=== PATIENT | male | born 1980 | race Caucasian/White ===

== ENCOUNTER → 2016-05-17 | Outpatient (CLI) | payer OTHER ==
[~2016-05-17] MED LIST: APAP500 PO; ASCORBIC ACID500 M3 PO; CIPRO250 M1 PO; COLACE100 MG PO; FLAGYL500 MG PO; IBUPROFEN 200200 M1 PO; IBUPROFEN200 M2 PO; MULTI VITAMIN1 EACH PO; PHARBETOL500 M1 PO; POVIDINE 10% OI28 G1 TP; REMERON15 MG PO; SANTYL OINTMENT30 G1; ZINC SULFATE 2220 MG PO
== END ==
LOC: HYPER 07:09
DX: L89.313 Pressure ulcer of right buttock, stage 3 (principal); L89.213 Pressure ulcer of right hip, stage 3; L89.323 Pressure ulcer of left buttock, stage 3; L89.892 Pressure ulcer of other site, stage 2; G82.21 Paraplegia, complete; F17.210 Nicotine dependence, cigarettes, uncomplicated

== ENCOUNTER → 2016-07-12 | Outpatient (CLI) | payer OTHER | LOC: HYPER 07:14 | DX: L89.313 Pressure ulcer of right buttock, stage 3 (principal); L89.213 Pressure ulcer of right hip, stage 3; L89.223 Pressure ulcer of left hip, stage 3; L89.892 Pressure ulcer of other site, stage 2; L89.623 Pressure ulcer of left heel, stage 3; G82.21 Paraplegia, complete; F17.210 Nicotine dependence, cigarettes, uncomplicated ==

== ENCOUNTER → 2016-08-23 | Outpatient (CLI) | payer OTHER | LOC: HYPER 07:13 | DX: L89.313 Pressure ulcer of right buttock, stage 3 (principal); L89.523 Pressure ulcer of left ankle, stage 3; L89.213 Pressure ulcer of right hip, stage 3; L89.223 Pressure ulcer of left hip, stage 3; L89.623 Pressure ulcer of left heel, stage 3; L89.892 Pressure ulcer of other site, stage 2; G82.21 Paraplegia, complete; F17.210 Nicotine dependence, cigarettes, uncomplicated ==

== ENCOUNTER → 2016-09-20 | Outpatient (CLI) | payer OTHER | LOC: HYPER 07:01 | DX: L89.213 Pressure ulcer of right hip, stage 3 (principal); L89.223 Pressure ulcer of left hip, stage 3; L89.623 Pressure ulcer of left heel, stage 3; L89.892 Pressure ulcer of other site, stage 2; L89.313 Pressure ulcer of right buttock, stage 3; G82.21 Paraplegia, complete; F17.210 Nicotine dependence, cigarettes, uncomplicated ==

== ENCOUNTER → 2016-10-18 | Outpatient (CLI) | payer OTHER | LOC: HYPER 06:54 | DX: L89.213 Pressure ulcer of right hip, stage 3 (principal); L89.223 Pressure ulcer of left hip, stage 3; L89.623 Pressure ulcer of left heel, stage 3; L89.523 Pressure ulcer of left ankle, stage 3; L89.313 Pressure ulcer of right buttock, stage 3; G82.21 Paraplegia, complete; F17.210 Nicotine dependence, cigarettes, uncomplicated ==

== ENCOUNTER → 2016-12-04 | Outpatient (CLI) | payer OTHER | LOC: HYPER 11-13 06:41 | DX: L89.213 Pressure ulcer of right hip, stage 3 (principal); L89.223 Pressure ulcer of left hip, stage 3; L89.313 Pressure ulcer of right buttock, stage 3; L89.623 Pressure ulcer of left heel, stage 3; L89.523 Pressure ulcer of left ankle, stage 3; G82.21 Paraplegia, complete; F17.210 Nicotine dependence, cigarettes, uncomplicated ==

== ENCOUNTER → 2017-02-28 | Outpatient (CLI) | payer OTHER ==
[~2017-02-28] MED LIST changes: +CEFDINIR300 MG PO; +DAKIN'S473 ML IRRIG; +HYDROCODON-ACE1 EAC5 PO; +IBUPROFEN 400400 M2 PO; +MEROPENEM500 MG IV; +SSD CREAM 1% 5050 GM
== END ==
LOC: HYPER 06:55
DX: L89.313 Pressure ulcer of right buttock, stage 3 (principal); L89.213 Pressure ulcer of right hip, stage 3; L89.223 Pressure ulcer of left hip, stage 3; L89.623 Pressure ulcer of left heel, stage 3; L89.613 Pressure ulcer of right heel, stage 3; G82.21 Paraplegia, complete; F17.210 Nicotine dependence, cigarettes, uncomplicated

== ENCOUNTER 2017-03-02 16:15 | Inpatient (IN) | payer OTHER ==
[~2017-03-02] VITALS: Ht 185.4 cm; Wt 68.0 kg
--- NOTE | ~2017-03-02 | HC ---
[facility] [place] [address] CONSULTATION Name: HARJINDERJORGEJOSE Link Room #: 444-P ADM IN M.R.#: [id number] Admission: 03/02/17 Attend Phys: Jerry Cardona DO Discharge: Date of : 80 Report #: [id number] THIS REPORT FOR: //name// CC: Jerry Sy TYPE OF REPORT: Infectious diseases consultation. REASON FOR CONSULTATION: I was asked to evaluate concerning left hip osteomyelitis. HISTORY OF PRESENT ILLNESS: The patient is a 36-year-old L1 paraplegic since 2008. He has developed decubiti to left him, ischium and sacrum in the past, now dealing with a chronic wound to his right sacrum and is left greater trochanter. He has had multiple debridements. He has been undergoing daily wound care. he has been on and off intravenous antibiotics. He has had a previous myocutaneous flap to the ischium on the right. Most recently, he noticed dislocation in his left hip. He was being evaluated by Dr. Crump who recommended hospitalization for further surgical intervention. No fever, chills or sweats. REVIEW OF SYSTEMS: Unremarkable with no cardiopulmonary, GI or complaints other than the patient does have neurogenic bowel and bladder. He does have indwelling Leung catheter. ALLERGIES: None. MEDICATIONS: As noted on his MAR. PAST MEDICAL HISTORY: Previous debridements in his paraplegia. FAMILY HISTORY: Noncontributory. SOCIAL HISTORY: Smoker of cigarettes. No significant alcohol. He has some social issues where he states have to be at home within a week to take care of his kids. PHYSICAL EXAMINATION: VITAL SIGNS: He is afebrile, hemodynamically stable. GENERAL: He was alert and cooperative, no acute distress. HEENT: Unremarkable. CHEST: Clear. HEART: Regular. ABDOMEN: Soft. GENITALIA: External genitalia unremarkable. [facility] [address] [place] [address] CONSULTATION Name: REINA GRANDE Room #: 444-P [facility] IN [facility].#: [id number] Admission: 03/02/17 Attend Phys: Jerry Cardona DO Discharge: Date of : 80 Report #: [id number] MUSCULOSKELETAL: Right sacral wound was clean but deep, stage 4. The left hip wound was with granulation tissue present but fair amount of purulent drainage evident. The hip appeared to be disarticulated. No surrounding cellulitis. IMPRESSION AND PLAN: A 36-year-old paraplegic with suspected osteomyelitis of his left hip with chronic wound, likely has osteomyelitis involving the sacrum on the right and the patient will require further surgical debridement, possible hip disarticulation. We will obtain cultures tonight and blood work along with imaging studies. Surgery will be asked to be involved and we will likely start empiric antibiotics following cultures. <ELECTRONICALLY SIGNED> By: Robin Whitley MD 03/05/17 1302 [id number] [id number] Robin Whitley MD /lm
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
--- NOTE | ~2017-03-02 | O ---
[facility] [place] [address] OPERATIVE REPORT Name: REINA GRANDE Room #: 444-P ADM IN M.R.#: [id number] Admission: 03/02/17 Attend Phys: Jerry Cardona DO Discharge: Date of : 80 Report #: [id number] THIS REPORT FOR: //name// CC: Jerry Sy DATE OF SERVICE: 03/05/2017 PREOPERATIVE DIAGNOSES: 1. L1 paraplegia. 2. Stage IV decubitus wounds to the bilateral hips and right ischium. 3. Neurogenic bowel and bladder with an indwelling Leung catheter. 4. Severe protein calorie malnutrition with an albumin of 1.5. 5. 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 POSTOPERATIVE DIAGNOSES: 1. L1 paraplegia. 2. Stage IV decubitus wounds to the bilateral hips and right ischium. 3. Neurogenic bowel and bladder with an indwelling Leung catheter. 4. Severe protein calorie malnutrition with an albumin of 1.5. 5. 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 PROCEDURES: 1. Excisional debridement of skin, subcutaneous tissue, muscle and bone of his left hip wound measuring 10.75 x 9.5 cm in dimension (102.1 square cm). Preoperative wound measurements were similar as the overall dimension of the wound did not change substantially. 2. Excisional debridement of skin, subcutaneous tissue, muscle and bone of a right ischial decubitus wound ultimately measuring 7 x 5.5 cm in dimension (38.5 square cm). Preoperative wound measurements were similar as the overall dimensions of the wound did not change substantially. 3. Excisional debridement of skin, subcutaneous tissue, muscle and bone from a right hip decubitus wound ultimately measuring 8.5 x 7.5 cm in dimension (63.75 square cm). Preoperative wound measurements were similar as the overall dimensions of the wound did not change substantially. 4. Total surface area of all debrided wounds to bone equates to 204.35 square cm. SURGEON: Miguel White MD PARTY COORDINATOR: Alexander Gomes MS3. ANESTHESIA: General endotracheal anesthesia. [address] [address] OPERATIVE REPORT Name: REINA GRANDE Room #: 444-P [facility] IN M.R.#: [id number] Admission: 03/02/17 Attend Phys: Jerry Cardona DO Discharge: Date of : 80 Report #: [id number] ESTIMATED BLOOD LOSS: Minimal (less than 10 mL). COMPLICATIONS: None appreciated. SPECIMENS: 1. All excised tissue to pathology. 2. Culture swabs from left hip to microbiology. INDICATIONS: The patient is a 36-year-old male who has had longstanding paraplegia and has developed decubitus wounds that are stage 4 to all dependent areas overlying his hips and ischial regions. The patient has been admitted secondary to gross purulent drainage from his wounds and was found on CT scan of the pelvis to have left hip disarticulation with overt disintegration of the femoral head and pathologic fractures with gas in the joints. As the patient has necrotic tissue throughout the bed of each wound with purulent drainage, indication was for operative exploration today. DESCRIPTION OF PROCEDURE: After explaining the risks, benefits, and alternatives of the procedure with the patient in detail and obtaining consent, the patient was brought to the operating room and placed supine on his hospital bed. After conducting a thorough timeout procedure verifying correct patient and procedure, the patient was given general endotracheal anesthesia. Once adequate anesthesia was obtained, his SCDs were hooked up to pneumatic compression device. He was already on an inpatient regimen of IV antibiotic therapy, which is all in line with the SCIP protocol. The patient was now positioned on the operating room table in the prone position with all pressure points appropriately padded. His wounds were prepped and draped in the standard surgical sterile fashion. Upon evaluating the left hip wound, we had an immediate expression of nearly 150 mL of extremely foul smelling purulent drainage. Culture swabs were taken and sent to microbiology for analysis. Suction irrigation was used to evacuate the entirety of this and this was irrigated copiously with normal saline. I now used electrocautery to debride back all nonviable skin, subcutaneous tissue and muscle from the depths of the wound and around the periphery. Rongeurs were used to take bone and the patient's left hip was devoid of any vascularized bone. Therefore, a stop debridement at this juncture secondary to the likely need for left hip disarticulation. Hemostasis was assured with pressure and then the wound was packed tightly with sterile saline soaked Kerlix gauze. We then turned our attention to the right ischium where in similar fashion, I proceeded to debride all nonviable tissue down to bone and then utilized the Misonix ultrasonic debridement tool to remove the biofilm and all remaining nonviable tissue. In similar fashion, the right hip wound was debrided as well to dimensions as delineated above again using the Misonix ultrasonic debridement tool down to bone. Hemostasis was assured throughout. There was no further evidence of grossly necrotic tissue. All wounds were packed tightly with sterile saline [address] [address] OPERATIVE REPORT Name: REINA GRANDE Room #: 444-P [facility] IN .R.#: [id number] Admission: 03/02/17 Attend Phys: Jerry Cardona DO Discharge: Date of : 80 Report #: [id number] soaked Kerlix gauze, dressed with 4 x 4s, ABDs and Medipore tape. At the end of the procedure, all instrument, needle and sponge counts were correct. The patient tolerated the procedure without incident, was awakened in the operating room and transitioned to the recovery room in stable condition with no apparent complications. <ELECTRONICALLY SIGNED> By: Miguel White MD, FACS 03/05/17 1309 1232 1249 Miguel White MD, FACS /nt
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
--- NOTE | ~2017-03-02 | S ---
[facility] [place] [address] SURGICAL PATH RPT PROCEDURE Name: HARJINDERMERRICK Isabel Room #: 444-P ADM IN M.R.#: [id number] Admission: 03/02/17 Date of : 80 Discharge: Report #: [id number] Path Case #: [id number] PATHOLOGY REPORT COLLECTION DATE: 03/05/2017 RECEIVED DATE: 03/05/2017 SUBMITTING PHYS: Dr. Miguel White OTHER PHYS: Dr. Jerry La SPECIMEN(S) RECEIVED: A.Right hip tissue * * * * * * * * * * * * FINAL DIAGNOSIS: Right hip tissue, debridement: - Marked acute inflammation along with gangrenous and fibrinoid necrosis, consistent with decubitus ulcer. - Negative for malignancy. (IUV:pit; 03/06/2017) PATHOLOGIST: Swetha Montes M.D. REPORT ELECTRONICALLY SIGNED BY: Swetha Montes M.D. DATE/TIME: 03/06/2017 17:22 * * * * * * * * * * * * GROSS PATHOLOGY: The specimen is received in formalin, labeled "Merrick Grande and right hip tissue is a longitudinal irregular fragment of leroy-white fibrous tissue 5.0 cm in length and up to 1.7 cm in width. One surface has a 2.5 x 2.0 cm leroy-white skin. Sectioning shows a hemorrhagic cut surface underlying the skin. Commercial Reporter sections in A1. (SWS; 03/05/2017) CLINICAL HISTORY: Decubitus ulcer to bilateral iliacs and right ischium INITIAL CPT CODE(S): A; 79633 Professional services performed by [facility] at [facility] [address], [place] [address] [facility] [address] [place] [address] SURGICAL PATH RPT PROCEDURE Name: MERRICK GRANDE Room #: 444-P ADM IN M.R.#: [id number] Admission: 03/02/17 Date of : 80 Discharge: Report #: [id number] Path Case #: [id number] Technical services performed by [facility] at [address] [place] [address], [place] [address]. [facility] [address] [place] [address] PHONE: [phone] DIRECTOR: Zeus Mazariegos M.D. * * * END OF REPORT * * *
[~2017-03-02 16:15] MED LIST changes: -CEFDINIR300 MG PO; -DAKIN'S473 ML IRRIG; -HYDROCODON-ACE1 EAC5 PO; -IBUPROFEN 400400 M2 PO; -MEROPENEM500 MG IV; -SSD CREAM 1% 5050 GM
[2017-03-02] MEDS ORDERED: HYDROCODON-ACE1 EAC5 PO (17:41)
[2017-03-02 17:58] VITALS: BP 113/68
[2017-03-02 20:07] VITALS: BP 112/67
[2017-03-02 20:30] LABS: HEMATOCRIT 25.9 % (42.0-52.0); MCH 21.7 pg (26.0-34.0); MCHC 30.8 g/dL (28.0-37.0); RBC 3.68 mil/uL (4.50-6.00)
[2017-03-02 20:31] LABS: URINE BILIRUBIN NEGATIVE (Negative); URINE BLOOD NEGATIVE (Negative); URINE CLARITY TURBID; URINE COLOR YELLOW; URINE GLUCOSE-RANDOM* NEGATIVE (Negative); URINE KETONES NEGATIVE (Negative); URINE PROTEIN (DIPSTICK) NEGATIVE (Negative); URINE SPECIFIC GRAVITY >= 1.030 (1.005-1.035); URINE UROBILINOGEN 0.2 E.U./dl (0.2-1.0)
[2017-03-02 20:31] LABS: ABSOLUTE NEUTROPHILS 9.6 thou/uL (1.4-8.2); BASOPHILS 0.7 % (0.0-2.0); LYMPHOCYTES 17.1 % (24.0-44.0); MCV 70.4 fL (80.0-100.0); MONOCYTES 8.6 % (1.0-8.0); POLYS 71.6 % (36.0-66.0); RDW 18.8 % (10.5-14.5); WBC 13.4 thou/uL (4.0-11.0)
[2017-03-02 20:41] LABS: PLATELET COUNT 997 thou/uL (150-400)
[2017-03-02 20:42] LABS: URINE LEUKOCYTES-REFLEX TRACE (Negative); URINE NITRITE-REFLEX POSITIVE (Negative)
[2017-03-02 20:48] LABS: ALBUMIN 1.5 g/dL (3.4-5.0); ANION GAP 6 mmol/L (7-16); BUN 7 mg/dL (7-18); CHLORIDE 103 mmol/L (98-107); CO2 29 mmol/L (21-32); CREATININE 0.7 mg/dL (0.7-1.3); GLUCOSE 125 mg/dL (74-106); POTASSIUM 3.6 mmol/L (3.5-5.1); SGOT 14 U/L (15-37); SGPT 14 U/L (30-65); SODIUM 138 mmol/L (136-145); TOTAL BILIRUBIN < 0.1 mg/dL (<0.1-1.0); TOTAL PROTEIN 6.7 g/dL (6.4-8.2)
[2017-03-02 20:52] LABS: URIC ACID CRYSTALS >10 Many /LPF (None Seen); YEAST-REFLEX Present (None Seen)
[2017-03-02 20:53] LABS: BACTERIA-REFLEX 1-9 Few /HPF (None Seen); CASTS None Seen /LPF (None Seen); SQUAMOUS None Seen /LPF (0-3); URINE RBC None Seen /HPF (0-2); URINE WBC-REFLEX None Seen /HPF (0-5)
[2017-03-02 21:39] LABS: ANISOCYTOSIS 3+; HYPOCHROMASIA 1+; MICROCYTES 1+; POIKILOCYTOSIS SLIGHT; POLYCHROMASIA SLIGHT
[2017-03-03 03:28] VITALS: BP 98/65
[2017-03-03 08:00] VITALS: BP 101/66
[2017-03-03 16:00] VITALS: BP 100/65
[2017-03-03 19:55] VITALS: BP 96/62
[2017-03-04 04:10] VITALS: BP 100/69
[2017-03-04 08:20] VITALS: BP 91/59
[2017-03-04 17:05] VITALS: BP 84/49
[2017-03-04 21:25] VITALS: BP 85/51
[2017-03-05] VITALS (8 sets, daily range): BP systolic 83–101; BP diastolic 49–59
[2017-03-05 06:00] LABS: ABSOLUTE NEUTROPHILS 9.3 thou/uL (1.4-8.2); BASOPHILS 0.5 % (0.0-2.0); EOSINOPHILS 3.3 % (0.0-3.0); HEMATOCRIT 27.1 % (42.0-52.0); HEMOGLOBIN 8.3 gm/dL (14.0-18.0); LYMPHOCYTES 23.6 % (24.0-44.0); MCH 21.5 pg (26.0-34.0); MCHC 30.4 g/dL (28.0-37.0); MCV 70.7 fL (80.0-100.0); MONOCYTES 7.1 % (1.0-8.0); POLYS 65.5 % (36.0-66.0); RBC 3.84 mil/uL (4.50-6.00); RDW 18.5 % (10.5-14.5); WBC 14.3 thou/uL (4.0-11.0)
[2017-03-05 06:07] LABS: PLATELET COUNT 893 thou/uL (150-400)
[2017-03-05 06:20] LABS: CALCIUM 8.1 mg/dL (8.5-10.1); CREATININE 0.6 mg/dL (0.7-1.3); POTASSIUM 4.1 mmol/L (3.5-5.1)
[2017-03-05 08:03] LABS: ANISOCYTOSIS 2+; HYPOCHROMASIA 2+; MICROCYTES 1+
[2017-03-06 03:47] VITALS: BP 96/56
[2017-03-06 08:00] VITALS: BP 89/51
[2017-03-06 09:55] VITALS: BP 92/37
[2017-03-06 16:02] VITALS: BP 83/52
[2017-03-06 21:07] VITALS: BP 100/53
[2017-03-07 04:49] VITALS: BP 100/56
[2017-03-07 16:00] VITALS: BP 89/51
[2017-03-07 19:59] VITALS: BP 94/45
[2017-03-08 12:02] VITALS: BP 92/59
[2017-03-08 15:38] VITALS: BP 89/56
[2017-03-08 19:22] VITALS: BP 95/55
[2017-03-09 03:47] VITALS: BP 116/45
[2017-03-09 08:00] VITALS: BP 88/52
[2017-03-09] MEDS ORDERED: HYDROCODON-ACE1 EAC5 PO (09:54)
[2017-03-09 10:27] VITALS: BP 88/52
[2017-03-09] MEDS ORDERED: CEFDINIR300 MG PO (14:42)
[2017-03-09] MEDS ORDERED: FLAGYL500 MG PO (14:42)
[2017-03-09 16:00] VITALS: BP 88/52
[2017-03-09 16:05] VITALS: BP 88/52
[2017-05-10] MEDS ORDERED: SSD CREAM 1% 5050 GM (08:51)
[2017-05-10] MEDS ORDERED: IBUPROFEN 400400 M2 PO (09:15)
== END 2017-03-09 20:36 | disposition home health service (06) | DRG 853 ==
LOC: 4S 16:15
PROVIDERS: Family Medicine; Internal Medicine; Specialist
PROC: 0QB30ZZ Excision of Left Pelvic Bone, Open Approach (ICD-10-PCS; principal; 2017-03-05)
DX: A41.9 Sepsis, unspecified organism (principal); L89.224 Pressure ulcer of left hip, stage 4; E43 Unspecified severe protein-calorie malnutrition; L89.624 Pressure ulcer of left heel, stage 4; L89.614 Pressure ulcer of right heel, stage 4; L89.154 Pressure ulcer of sacral region, stage 4; M86.8X8 Other osteomyelitis, other site; G82.20 Paraplegia, unspecified; Z68.1 Body mass index [BMI] 19.9 or less, adult; R00.0 Tachycardia, unspecified; I95.9 Hypotension, unspecified; F17.210 Nicotine dependence, cigarettes, uncomplicated; Z79.899 Other long term (current) drug therapy
CPT/HCPCS: 10102; 50010; 50101; 50386; 50403; 53353; 53354; 62110; 62900; 70005

== ENCOUNTER → 2017-04-18 | Outpatient (CLI) | payer OTHER ==
[~2017-04-18] MED LIST changes: +CEFDINIR300 MG PO; +DAKIN'S473 ML IRRIG; +HYDROCODON-ACE1 EAC5 PO; +IBUPROFEN 400400 M2 PO; +MEROPENEM500 MG IV; +SSD CREAM 1% 5050 GM
== END ==
LOC: HYPER 06:53
DX: L89.224 Pressure ulcer of left hip, stage 4 (principal); L89.213 Pressure ulcer of right hip, stage 3; L89.313 Pressure ulcer of right buttock, stage 3; L89.613 Pressure ulcer of right heel, stage 3; L89.523 Pressure ulcer of left ankle, stage 3; L89.150 Pressure ulcer of sacral region, unstageable; G82.21 Paraplegia, complete; F17.210 Nicotine dependence, cigarettes, uncomplicated

== ENCOUNTER 2017-05-16 09:24 | Inpatient (IN) | payer OTHER ==
[~2017-05-16] VITALS: Ht 185.4 cm; Wt 60.2 kg
--- NOTE | ~2017-05-16 | O ---
[facility] [place] [address] OPERATIVE REPORT Name: HARJINDERREINA Fariba Room #: 238-P ADM IN M.R.#: [id number] Admission: 05/16/17 Attend Phys: Jerry Cardona DO Discharge: Date of : 80 Report #: [id number] THIS REPORT FOR: //name// CC: FAM unknown Jerry Cardona DATE OF SERVICE: 05/16/2017 PREOPERATIVE DIAGNOSIS: Bilateral hip joint sepsis with chronic ulceration. POSTOPERATIVE DIAGNOSIS: Bilateral hip joint sepsis with chronic ulceration. PROCEDURE: Bilateral hip Girdlestone procedure with placement of wound VACs on bilateral hips. SURGEON: Alexander Olmos MD EXECUTIVE SERVICES ADMINISTRATOR: Sara Montgomery PA-C. INDICATIONS FOR EXECUTIVE SERVICES ADMINISTRATOR: Throughout the case, extensive retraction of the hip and manipulation of the hip was required, this was afforded to me by my assistant store manager operations. ANESTHESIA: General endotracheal. ESTIMATED BLOOD LOSS: 250 mL COMPLICATIONS: None. SPECIMEN: Bilateral proximal femurs were sent for pathology. CONDITION UPON LEAVING THE OPERATING ROOM: Stable. INDICATION FOR PROCEDURE: The patient is a 36-year-old gentleman who is an L1 paraplegic. He has had chronic ulcers with drainage over his bilateral hips, and a CT scan shown to have a septic hip joint as well as osteomyelitis of bilateral femoral heads. His left hip was actually dislocated and the right hip was partially dislocated. He was having significant purulent drainage from the right hip. After discussion with him as well as recommendations from Infectious Disease and Wound Care, we decided to proceed with Girdlestone procedure with probable placement of wound VAC. DESCRIPTION OF PROCEDURE: Risks, benefits, alternatives, complications were discussed in detail with the patient including, but not limited to risk of anesthesia, risk of damage to nerves, arteries, blood vessels, risk for continued infection, bleeding and need for leg amputation down the road. [facility] [address] [place] [address] OPERATIVE REPORT Name: REINA GRANDE Room #: 238-P [facility] IN [facility].#: [id number] Admission: 05/16/17 Attend Phys: Jerry Cardona DO Discharge: Date of : 80 Report #: [id number] Informed consent was obtained from the patient. Bilateral hips were marked in the preoperative holding area. He was already on IV antibiotics prior to surgery. He was brought to the operating room and general endotracheal anesthesia was induced without complication. This dictation applies to both the left and the right hip. Hip was prepped and draped in normal sterile fashion. Timeout was performed properly identifying the patient and procedure as well as the instrumentation, and all in the operating room were in agreement. The ulcer was explored and there was obvious communication of the ulcer down into the hip joint itself. The proximal femur was then easily dissected out with Bovie cautery. A saw was used to transect the proximal femur and this was removed and sent to pathology. The right hip did demonstrate a large amount of purulence as well as osteomyelitis of the femoral head and the acetabulum, and the acetabulum was curetted out down to good bleeding cancellous bone. Both hips were thoroughly irrigated with normal saline using a pulse lavage and wound VACs were placed on bilateral hips for wound care. He was then awoken from anesthesia, taken to the recovery room under the care of anesthesia postoperatively. Hip abduction pillow was placed to control leg motion. <ELECTRONICALLY SIGNED> By: Alexander Olmos MD 05/19/17 0931 [id number] [id number] Alexander Olmos MD /nt
--- NOTE | ~2017-05-16 | HC ---
[facility] [place] [address] CONSULTATION Name: REINA GRANDE Room #: 238-P ADM IN M.R.#: [id number] Admission: 05/16/17 Attend Phys: Jerry Cardona DO Discharge: Date of : 80 Report #: [id number] THIS REPORT FOR: //name// CC: FAM unknown Jerry Cardona REASON FOR CONSULTATION: I was asked to evaluate concerning pelvic osteomyelitis. HISTORY OF PRESENT ILLNESS: The patient was a 36-year-old L1 paraplegic with chronic nonhealing wounds. He was hospitalized in February with evidence of osteomyelitis. It was recommended that he undergo extensive surgical debridement. Disarticulation was recommended. He refused and stated due to social issues, he needed to return home. Cultures have revealed mixed rigo and he was on ceftriaxone, metronidazole. Then, dismissed on oral antibiotic therapy. He returns now for further surgical intervention. He notes that over the last week, he has had fever over 102 degrees. Has had chills. No cough or headache. No nausea, vomiting or diarrhea. He has indwelling Leung catheter that was changed several weeks ago. Continues to have a large amount of drainage from his pelvic wounds. He has been on no recent antibiotics. Unclear when he stopped his oral antibiotic therapy that I dismissed him home on. REVIEW OF SYSTEMS: Negative other than what is described above. ALLERGIES: None. MEDICATIONS: As noted on his MAR, having been off his antibiotics. PAST MEDICAL HISTORY: Paraplegia, previous debridements, myocutaneous flap closure for his chronic wounds. Right femur fracture. Coccygectomy. Neurogenic bowel and bladder. Gastroesophageal reflux. FAMILY HISTORY: Noncontributory. SOCIAL HISTORY: Lives at home with his and children. PHYSICAL EXAMINATION: VITAL SIGNS: Afebrile and hemodynamically stable. Temperature is 99.6, pulse was 114, blood pressure 94/58. GENERAL: He is a bit despondent. He had odorous drainage from his hip wounds. HEENT: Unremarkable. Dentition in fair repair. NECK: Supple. LUNGS: Clear. HEART: Regular without murmur. He was tachycardic. ABDOMEN: Soft. Indwelling Leung catheter is unremarkable. Wounds were large with bone exposed to both hip regions. Odorous purulent drainage identified from his right hip. [facility] [address] [place] [address] CONSULTATION Name: REINA GRANDE Room #: 238-P [facility].#: [id number] Admission: 05/16/17 Attend Phys: Jerry Cardona DO Discharge: Date of : 80 Report #: [id number] LABORATORY STUDIES: Hemoglobin 7.2, white count was 26.2 with 40% bands, platelet count was 1 million 62,000. Lactate 3.6, sodium 129, potassium 3.4, bicarbonate 27, creatinine 0.7. Liver function test normal. Albumin of 1.3. IMPRESSION: Polymicrobial infection of his pelvic wounds. Now with significant leukocytosis with left shift, anemia, malnutrition with albumin of less than 2. He will need further surgical intervention for debridement. Planning Girdlestone. I have discussed with nursing staff. He will need broad antibiotic coverage, pending further culture results. I am concerned now about his right hip with the amount of drainage that is apparent. I would like to check blood cultures, wound cultures, start him on IV antibiotic therapy and reassess before surgery tomorrow. We will repeat a CT scan to further assess pelvic abscess. <ELECTRONICALLY SIGNED> By: Robin Whitley MD 05/17/17 2101 1421 1509 Robin Whitley MD /nt
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
--- NOTE | ~2017-05-16 | S ---
[facility] [place] [address] SURGICAL PATH RPT PROCEDURE Name: MERRICK GRANDE Room #: 238-P ADM IN M.R.#: [id number] Admission: 05/16/17 Date of : 80 Discharge: Report #: [id number] Path Case #: [id number] PATHOLOGY REPORT COLLECTION DATE: 05/17/2017 RECEIVED DATE: 05/17/2017 SUBMITTING PHYS: Dr. Alexander Olmos OTHER PHYS: Dr. Jerry Cardona SPECIMEN(S) RECEIVED: A.Left hip bone B.RIght hip bone * * * * * * * * * * * * FINAL DIAGNOSIS: A. Bone, left hip bone, excision: - Marked acute inflammation along with osteonecrosis, consistent with acute osteomyelitis. - Bone at margin viable. B. Bone, right hip bone, excision: - Marked acute inflammation along with osteonecrosis, consistent with acute osteomyelitis. - Bone at margin viable. (IUV:mgr; 05/18/2017) PATHOLOGIST: Swetha Montes M.D. REPORT ELECTRONICALLY SIGNED BY: Swetha Montes M.D. DATE/TIME: 05/18/2017 15:03 * * * * * * * * * * * * GROSS PATHOLOGY: A. Received in formalin labeled "Merrick Grande, left hip bone" is a 10.0 x 7.5 x 6.0 cm proximal hip resection specimen consisting of bone and surrounding pink-herrera adherent soft tissue. The distal resection margin is smooth, and is inked black. The external surface of the specimen is pink-herrera and ragged, and the soft tissue completely surrounds the bone except for at the articular surface and distal margin. The articular surface is eburnated and roughened. The specimen is bisected to reveal a slightly soft but otherwise grossly unremarkable bony cut surface. Aircrewman sections of the specimen are submitted following decalcification as follows: A1 community engagement representative shave of the distal margin A2 community engagement representative articular surface A3 community engagement representative bone and attached soft tissue B. Received in formalin labeled "Merrick Grande, right hip bone," is a femoral head measuring 6.4 x 6.0 x 4.3 cm in greatest [address] [address] SURGICAL PATH RPT PROCEDURE Name: JENNFIER GRANDEIRMA Link Room #: 238-P [facility] IN [facility].#: [id number] Admission: 05/16/17 Date of : 80 Discharge: Report #: [id number] Path Case #: [id number] dimensions. The attached femoral neck and proximal femur measures 7.7 cm in length and 9.2 x 6.6 cm in second and third dimension. The articular surface is extremely roughened and eburnated over a 5.2 x 5.0 cm area, which is herrera-green tinged. The uninvolved articular surface is herrera-white and cartilaginous covered. The distal margin is inked black. A scant amount of pink-herrera adherent soft tissue is identified on the periphery of the bone. Sectioning the bone reveals slightly soft but otherwise grossly unremarkable cut surfaces. Also present within the container is a 7.7 x 4.5 x 2.4 cm portion of herrera-white membranous soft tissue which has a 2.0 x 1.5 x 0.9 cm area of herrera-white ragged bone attached. Aircrewman sections are submitted following decalcification as follows: B1 community engagement representative shave of the distal margin B2 community engagement representative articular surface B3 community engagement representative section of detached bony and soft tissue ([facility]; 05/17/2017) CLINICAL HISTORY: Left hip osteomyelitis. INITIAL CPT CODE(S): A; 22772, 20346 B; 59754, 28942 Professional services performed by [facility] at [facility] [address], [place] [address] Technical services performed by [facility] at [address] [place] [address], [address], [place] [address]. [facility] [address] [place] [address] PHONE: [phone] DIRECTOR: Zeus Mazariegos M.D. * * * END OF REPORT * * *
--- NOTE | ~2017-05-16 | HC ---
[facility] [place] [address] CONSULTATION Name: REINA GRANDE Room #: 455-P ADM IN M.R.#: [id number] Admission: 05/16/17 Attend Phys: Jerry Cardona DO Discharge: Date of : 80 Report #: [id number] THIS REPORT FOR: //name// CC: FAM unknown Jerry Cardona DATE OF SERVICE: 05/17/2017 PERSONAL PHYSICIAN: None on staff. CHIEF COMPLAINT: Bilateral hip wounds. HISTORY OF PRESENT ILLNESS: This is a 36-year-old white male with a history of paraplegia who was taken to the operating room this morning for bilateral Girdlestone procedure with removal of both femoral heads. I am seeing the patient after he admitted back from the operating room. At that time, the patient in the operating room had wound VAC sponges placed over each surgical wound and they were actively bleeding. At that point in time, the patient had blood pressure that was systolic of 65/35. The patient was tachycardic in the 120s. The patient was still conversant. We immediately stopped the wound VACs, explored the left hip wound, which seemed to be the one that was actively bleeding. There seemed to be venous oozing coming from the bone itself. This was then packed with Gelfoam and a pressure dressing and the bleeding seemed to have subsided. The patient was given 1 liter of IV fluid while they are pending transfer to the ICU. The other wound VAC was turned off on the right hip. I spoke with Dr. Olmos, the surgeon and explained to him that the bleeding seemed to have somewhat subsided and I would check on the patient shortly to see how he was doing. The patient was then taken out of the ICU in serious condition. I went down shortly after and saw that the patient had actually bled through the pressure dressing we placed on the left wound and we repacked that with an entire roll of Kerlix and then a pressure dressing was placed on top of this. I have spoken to Dr. Olmos again and stated at this time it appears the patient will have to be taken back to the operating room for better control of this bleeding. Four units of packed cells have been ordered for the patient as well as the patient is on a second bag of IV fluids at this time. A stat hemoglobin was ordered and came back 6.7, from earlier in the day was 6.5 and the patient supposedly had received 2 units of blood in the operating room according to the nurses. IMPRESSION: 1. Bilateral surgical wounds from Girdlestone procedure with persistent venous bleeding. 2. Hypotension secondary to above. 3. History of chronic osteomyelitis, bilateral hips. 4. History of paraplegia. [facility] [address] [place] [address] CONSULTATION Name: REINA GRANDE Room #: 455-P ADM IN M.R.#: [id number] Admission: 05/16/17 Attend Phys: Jerry Cardona DO Discharge: Date of : 80 Report #: [id number] PLAN: Once again, this time the patient has been taken to the ICU in serious condition. Dr. Olmos has been notified. He is going to come back and take the patient to the operating room later. We are also awaiting blood to be brought to the facility for transfusions. I explained to the patient how he was having persistent bleeding. He seemed to understand this and is still once again conversant even in the ICU in which his pressure now is up into the upper 70s after fluid resuscitation. Critical care time for this patient was 45 minutes. <ELECTRONICALLY SIGNED> By: Roby Sy MD 05/22/17 0813 1352 1432 Roby Sy MD /nt
--- NOTE | ~2017-05-16 | HC ---
[facility] [place] [address] CONSULTATION Name: JENNIFER GRANDEDUNCANJOSE Link Room #: 238-P ADM IN M.R.#: [id number] Admission: 05/16/17 Attend Phys: Jerry Cardona DO Discharge: Date of : 80 Report #: [id number] THIS REPORT FOR: //name// CC: FAM unknown Jerry Cardona REASON FOR CONSULTATION: This patient was seen in consultation in regard to elevated platelet count and anemia. HISTORY OF PRESENT ILLNESS: This is a 36-year-old L1 paraplegic who was admitted with chronic nonhealing wounds associated with osteomyelitis and is to undergo disarticulation surgery. He has had recent fever along with antibiotic therapy. He has not noted any obvious blood loss. PAST MEDICAL HISTORY: Significant for previous injury with subsequent L1 paraplegia along with generalized debility and severe protein calorie malnourishment. SOCIAL HISTORY: He is a smoker, a pack per day until recently. He denies alcohol, but has had prior drug use. MEDICATIONS: Listed on the MFR. ALLERGIES: None known. FAMILY HISTORY: Not contributory. REVIEW OF SYSTEMS: Positive for earlier shaking chills and a fever prior to admission. He has had these chronic ulcerations overlying his left hip. Remaining review of systems is negative. PHYSICAL EXAMINATION: GENERAL: Shows a chronically ill male. HEENT: Normocephalic. NECK: Supple. CHEST: Clear. CARDIOVASCULAR: Normal S1. ABDOMEN: Failed to reveal palpable spleen. LYMPHATICS: No palpable supraclavicular or axillary adenopathy. NEUROLOGIC: He is an L1 paraplegic. EXTREMITIES: Show a bandaged area with ulcerated wounds. LABORATORY DATA: Showed a white count of 14,300 with hemoglobin of 8 grams and microcytic indices. His platelet count was greater than a million. [facility] [place] [address] CONSULTATION Name: HARJINDERREINA Isabel Room #: 238-P ADM IN .R.#: [id number] Admission: 05/16/17 Attend Phys: Jerry Cardona DO Discharge: Date of : 80 Report #: [id number] ASSESSMENT AND PLAN: I would think that his thrombocytosis is reactive and related to current infection and iron deficiency. His anemia would be related to iron deficiency in addition to chronic disease and malnourishment. Laboratory studies have been ordered and full and further recommendations will be forthcoming. Thanks again for allowing me to see him with you in consultation and asking me to participate in his care. <ELECTRONICALLY SIGNED> By: Mariya Cristina MD 05/18/17 0907 2200 221 Mariya Cristina MD /nt
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
[~2017-05-16 09:24] MED LIST changes: -DAKIN'S473 ML IRRIG; -MEROPENEM500 MG IV
[2017-05-16 10:15] VITALS: BP 94/58
[2017-05-16 13:12] LABS: HEMOGLOBIN 7.2 gm/dL (14.0-18.0); WBC 26.2 thou/uL (4.0-11.0)
[2017-05-16 13:14] LABS: HEMATOCRIT 24.2 % (42.0-52.0); MCH 19.5 pg (26.0-34.0); MCHC 29.8 g/dL (28.0-37.0); MCV 65.4 fL (80.0-100.0); RDW 18.8 % (10.5-14.5)
[2017-05-16 13:23] LABS: CALCIUM 8.2 mg/dL (8.5-10.1); CREATININE 0.7 mg/dL (0.7-1.3); POTASSIUM 3.4 mmol/L (3.5-5.1)
[2017-05-16 13:28] LABS: ALBUMIN 1.3 g/dL (3.4-5.0); TOTAL BILIRUBIN 0.1 mg/dL (<0.1-1.0); TOTAL PROTEIN 7.2 g/dL (6.4-8.2)
[2017-05-16 13:43] LABS: ABSOLUTE NEUTROPHILS 22.3 thou/uL (1.4-8.2); HYPOCHROMASIA 2+; LARGE PLATELETS FEW; PLATELET ESTIMATE MARKEDLY INCREASED
[2017-05-16 13:44] LABS: ANISOCYTOSIS 1+; MICROCYTES 2+
[2017-05-16 13:45] LABS: PLATELET COUNT 1062 thou/uL (150-400)
[2017-05-16 16:37] VITALS: BP 79/49
[2017-05-16 17:26] LABS: URINE BILIRUBIN NEGATIVE (Negative); URINE BLOOD NEGATIVE (Negative); URINE CLARITY CLEAR; URINE COLOR YELLOW; URINE GLUCOSE-RANDOM* NEGATIVE (Negative); URINE KETONES NEGATIVE (Negative); URINE LEUKOCYTES-REFLEX 2+ (Negative); URINE NITRITE-REFLEX POSITIVE (Negative); URINE PROTEIN (DIPSTICK) NEGATIVE (Negative); URINE SPECIFIC GRAVITY <= 1.005 (1.005-1.035)
[2017-05-16 17:36] LABS: SQUAMOUS 4-10 Moderate /LPF (0-3); URINE RBC 0-2 Rare /HPF (0-2); URINE WBC-REFLEX 6-15 Few /HPF (0-5)
[2017-05-16 17:37] LABS: AMORPHOUS PHOSPHATES Many /LPF (None Seen); COARSE GRANULAR CASTS 0-3 Few /LPF (None Seen)
[2017-05-16 19:16] VITALS: BP 87/40
[2017-05-17] VITALS (35 sets, daily range): BP systolic 65–106; BP diastolic 42–68
[2017-05-17 06:31] LABS: OBSERVED RETIC COUNT 2.15 % (0.6-2.6)
[2017-05-17 06:40] LABS: HEMATOCRIT 21.6 % (42.0-52.0); HEMOGLOBIN 6.5 gm/dL (14.0-18.0); MCH 19.7 pg (26.0-34.0); MCHC 30.2 g/dL (28.0-37.0); MCV 65.3 fL (80.0-100.0); RBC 3.31 mil/uL (4.50-6.00); RDW 19.4 % (10.5-14.5); WBC 17.4 thou/uL (4.0-11.0)
[2017-05-17 06:41] LABS: CALCIUM 7.8 mg/dL (8.5-10.1); CREATININE 0.6 mg/dL (0.7-1.3); POTASSIUM 3.5 mmol/L (3.5-5.1)
[2017-05-17 06:51] LABS: % SATURATION 9 % (20-39); IRON 12 ug/dL (65-175); TIBC 129 ug/dL (250-450)
[2017-05-17 07:49] LABS: ABSOLUTE NEUTROPHILS 13.1 thou/uL (1.4-8.2); ANISOCYTOSIS 1+; MICROCYTES 1+
[2017-05-17 07:50] LABS: HYPOCHROMASIA 1+
[2017-05-17 08:11] LABS: PLATELET COUNT 981 thou/uL (150-400)
[2017-05-17 12:12] LABS: HEMOGLOBIN 6.7 gm/dL (14.0-18.0)
[2017-05-17 12:13] LABS: HEMATOCRIT 21.8 % (42.0-52.0)
[2017-05-17 17:13] LABS: BE(vivo) -2.9 mmol/L (-2 to +3); HCO3 20.7 mmol/L (22.0-26.0); PCO2 30.2 mmHg (35.0-45.0); PO2 105.2 mmHg (80.0-100.0); pH 7.453 (7.360-7.450); sO2 98.1 % (92.0-98.0)
[2017-05-17 18:50] LABS: HEMATOCRIT 20.4 % (42.0-52.0); HEMOGLOBIN 6.8 gm/dL (14.0-18.0); MCH 24.4 pg (26.0-34.0); MCHC 33.2 g/dL (28.0-37.0); RBC 2.78 mil/uL (4.50-6.00); RDW 21.1 % (10.5-14.5); WBC 26.1 thou/uL (4.0-11.0)
[2017-05-17 18:51] LABS: MCV 73.5 fL (80.0-100.0); PLATELET COUNT 617 thou/uL (150-400)
[2017-05-17 18:58] LABS: CALCIUM 6.8 mg/dL (8.5-10.1); CREATININE 0.6 mg/dL (0.7-1.3); POTASSIUM 3.8 mmol/L (3.5-5.1)
[2017-05-17 19:13] LABS: TOTAL BILIRUBIN 0.9 mg/dL (<0.1-1.0)
[2017-05-17 19:20] LABS: ABSOLUTE NEUTROPHILS 22.2 thou/uL (1.4-8.2)
[2017-05-17 19:22] LABS: ANISOCYTOSIS 2+; HYPOCHROMASIA 1+; MICROCYTES 1+; POLYCHROMASIA SLIGHT; TARGET CELLS OCCASIONAL
[2017-05-17 19:44] LABS: APTT 29.3 Seconds (24.5-32.8); FIBRINOGEN 374.5 mg/dL (210-360); INR 1.3; PROTIME 13.1 Seconds (9.3-11.4)
[2017-05-17 21:02] LABS: CALCIUM 6.7 mg/dL (8.5-10.1); CREATININE 0.6 mg/dL (0.7-1.3); POTASSIUM 3.8 mmol/L (3.5-5.1)
[2017-05-18] VITALS (58 sets, daily range): BP systolic 74–114; BP diastolic 48–98
[2017-05-18 04:33] LABS: HEMATOCRIT 26.7 % (42.0-52.0); MCH 26.3 pg (26.0-34.0); MCHC 33.6 g/dL (28.0-37.0); MCV 78.3 fL (80.0-100.0); RBC 3.41 mil/uL (4.50-6.00); RDW 19.6 % (10.5-14.5); WBC 20.4 thou/uL (4.0-11.0)
[2017-05-18 04:37] LABS: PLATELET COUNT 693 thou/uL (150-400)
[2017-05-18 04:58] LABS: CREATININE 0.6 mg/dL (0.7-1.3); POTASSIUM 3.8 mmol/L (3.5-5.1)
[2017-05-18 07:40] LABS: ABSOLUTE NEUTROPHILS 16.1 thou/uL (1.4-8.2); ANISOCYTOSIS 1+
[2017-05-18 10:28] LABS: HEMATOCRIT 27.1 % (42.0-52.0); HEMOGLOBIN 9.1 gm/dL (14.0-18.0); MCHC 33.7 g/dL (28.0-37.0); MCV 77.3 fL (80.0-100.0); RBC 3.51 mil/uL (4.50-6.00); RDW 19.9 % (10.5-14.5); WBC 21.8 thou/uL (4.0-11.0)
[2017-05-18 10:35] LABS: CALCIUM 7.3 mg/dL (8.5-10.1); CREATININE 0.5 mg/dL (0.7-1.3); PHOSPHORUS 3.2 mg/dL (2.5-4.9); POTASSIUM 3.8 mmol/L (3.5-5.1)
[2017-05-18 11:04] LABS: URINE BILIRUBIN NEGATIVE (Negative); URINE BLOOD NEGATIVE (Negative); URINE CLARITY CLEAR; URINE COLOR YELLOW; URINE GLUCOSE-RANDOM* NEGATIVE (Negative); URINE KETONES NEGATIVE (Negative); URINE LEUKOCYTES-REFLEX NEGATIVE (Negative); URINE NITRITE-REFLEX NEGATIVE (Negative); URINE PROTEIN (DIPSTICK) NEGATIVE (Negative); URINE SPECIFIC GRAVITY <= 1.005 (1.005-1.035); URINE UROBILINOGEN 0.2 E.U./dl (0.2-1.0)
[2017-05-19] VITALS (35 sets, daily range): BP systolic 80–112; BP diastolic 40–72
[2017-05-19 04:43] LABS: HEMATOCRIT 21.2 % (42.0-52.0); MCH 25.7 pg (26.0-34.0); MCHC 33.5 g/dL (28.0-37.0); MCV 76.6 fL (80.0-100.0); RBC 2.77 mil/uL (4.50-6.00); RDW 20.9 % (10.5-14.5); WBC 13.9 thou/uL (4.0-11.0)
[2017-05-19 04:53] LABS: CALCIUM 7.1 mg/dL (8.5-10.1); CREATININE 0.5 mg/dL (0.7-1.3); POTASSIUM 3.5 mmol/L (3.5-5.1)
[2017-05-19 04:58] LABS: HEMOGLOBIN 7.1 gm/dL (14.0-18.0)
[2017-05-19 05:34] LABS: ABSOLUTE NEUTROPHILS 10.4 thou/uL (1.4-8.2); ANISOCYTOSIS 3+; HYPOCHROMASIA 1+; MICROCYTES 1+; MYELOCYTES 3 %
[2017-05-19 05:35] LABS: PLATELET COUNT 599 thou/uL (150-400)
[2017-05-20] VITALS (17 sets, daily range): BP systolic 82–98; BP diastolic 51–69
[2017-05-20 04:39] LABS: ABSOLUTE NEUTROPHILS 11.2 thou/uL (1.4-8.2); BASOPHILS 1.2 % (0.0-2.0); EOSINOPHILS 0.9 % (0.0-3.0); HEMATOCRIT 29.9 % (42.0-52.0); LYMPHOCYTES 21.9 % (24.0-44.0); MCH 27.5 pg (26.0-34.0); MCHC 33.9 g/dL (28.0-37.0); MCV 81.1 fL (80.0-100.0); MONOCYTES 5.9 % (1.0-8.0); PLATELET COUNT 633 thou/uL (150-400); POLYS 70.1 % (36.0-66.0); RBC 3.68 mil/uL (4.50-6.00); RDW 20.4 % (10.5-14.5); WBC 15.9 thou/uL (4.0-11.0)
[2017-05-20 04:50] LABS: CALCIUM 7.4 mg/dL (8.5-10.1); CREATININE 0.5 mg/dL (0.7-1.3); POTASSIUM 3.7 mmol/L (3.5-5.1)
[2017-05-20 04:58] LABS: HEMOGLOBIN 10.1 gm/dL (14.0-18.0)
[2017-05-20 18:00] LABS: URINE BILIRUBIN NEGATIVE (Negative); URINE BLOOD NEGATIVE (Negative); URINE CLARITY CLEAR; URINE COLOR YELLOW; URINE GLUCOSE-RANDOM* NEGATIVE (Negative); URINE KETONES NEGATIVE (Negative); URINE LEUKOCYTES 2+ (Negative); URINE NITRITE NEGATIVE (Negative); URINE PROTEIN (DIPSTICK) NEGATIVE (Negative)
[2017-05-20 18:13] LABS: CASTS None Seen /LPF (None Seen); CRYSTALS None Seen /LPF (None Seen); SQUAMOUS 4-10 Moderate /LPF (0-3); YEAST Present (None Seen)
[2017-05-20 18:16] LABS: TRANSITIONAL EPITHEL CELL 4-10 Moderate /LPF (None Seen)
[2017-05-20 18:17] LABS: BACTERIA 1-9 Few /HPF (None Seen); URINE RBC None Seen /HPF (0-2)
[2017-05-21 00:01] VITALS: BP 83/43
[2017-05-21 04:00] VITALS: BP 89/55
[2017-05-21 05:14] LABS: HEMATOCRIT 30.2 % (42.0-52.0); HEMOGLOBIN 9.9 gm/dL (14.0-18.0); MCH 27.1 pg (26.0-34.0); MCHC 32.8 g/dL (28.0-37.0); MCV 82.6 fL (80.0-100.0); PLATELET COUNT 576 thou/uL (150-400); RBC 3.65 mil/uL (4.50-6.00); RDW 21.2 % (10.5-14.5); WBC 14.6 thou/uL (4.0-11.0)
[2017-05-21 05:30] LABS: CALCIUM 7.6 mg/dL (8.5-10.1); CREATININE 0.5 mg/dL (0.7-1.3); MAGNESIUM 2.1 mg/dL (1.8-2.4); POTASSIUM 4.2 mmol/L (3.5-5.1); TOTAL BILIRUBIN 0.1 mg/dL (<0.1-1.0); TOTAL PROTEIN 5.6 g/dL (6.4-8.2)
[2017-05-21 07:42] LABS: ABSOLUTE NEUTROPHILS 8.8 thou/uL (1.4-8.2); METAMYELOCYTES 2 %
[2017-05-21 07:43] LABS: ANISOCYTOSIS 2+; POLYCHROMASIA OCCASIONAL
[2017-05-21 08:00] VITALS: BP 97/62
[2017-05-21 12:00] VITALS: BP 95/65
[2017-05-21 16:00] VITALS: BP 93/61
[2017-05-21 19:32] VITALS: BP 91/52
[2017-05-22 04:00] VITALS: BP 93/50
[2017-05-22 08:38] VITALS: BP 79/49
[2017-05-22 15:11] VITALS: BP 97/54
[2017-05-22 19:43] VITALS: BP 85/49
[2017-05-23 08:00] VITALS: BP 90/54
[2017-05-23 12:28] LABS: ABSOLUTE NEUTROPHILS 6.8 thou/uL (1.4-8.2); EOSINOPHILS 2.1 % (0.0-3.0); HEMATOCRIT 30.2 % (42.0-52.0); HEMOGLOBIN 9.9 gm/dL (14.0-18.0); LYMPHOCYTES 31.1 % (24.0-44.0); MCHC 32.8 g/dL (28.0-37.0); MCV 82.3 fL (80.0-100.0); MONOCYTES 7.8 % (1.0-8.0); RBC 3.67 mil/uL (4.50-6.00); RDW 21.8 % (10.5-14.5); WBC 11.7 thou/uL (4.0-11.0)
[2017-05-23 12:37] LABS: PLATELET COUNT 664 thou/uL (150-400)
[2017-05-23 12:38] LABS: CALCIUM 7.9 mg/dL (8.5-10.1); CREATININE 0.5 mg/dL (0.7-1.3); POTASSIUM 4.2 mmol/L (3.5-5.1)
[2017-05-23] MEDS ORDERED: MEROPENEM500 MG IV (15:33)
[2017-05-23] MEDS ORDERED: DAKIN'S473 ML IRRIG (15:34)
[2017-05-23 16:36] LABS: ABSOLUTE RETIC COUNT 0.1632 10^6/uL; OBSERVED RETIC COUNT 4.53 % (0.6-2.6)
== END 2017-05-23 18:15 | DRG 853 ==
LOC: ER 09:24 → ICU 09:57 → 4N 09:57 → ICU 05-17 12:33 → 4W 05-21 18:11
PROVIDERS: Family Medicine; Hospitalist; Internal Medicine Hematology & Oncology; Internal Medicine Pulmonary Disease; Orthopaedic Surgery; Physician Assistant; Specialist
PROC: 0QB70ZZ Excision of Left Upper Femur, Open Approach (ICD-10-PCS; principal; 2017-05-16)
PROC: 0QB60ZZ Excision of Right Upper Femur, Open Approach (ICD-10-PCS; principal; 2017-05-16)
PROC: 30233N1 Transfusion of Nonautologous Red Blood Cells into Peripheral Vein, Percutaneous Approach (ICD-10-PCS; 2017-05-17)
DX: A41.9 Sepsis, unspecified organism (principal); E43 Unspecified severe protein-calorie malnutrition; L89.624 Pressure ulcer of left heel, stage 4; L89.614 Pressure ulcer of right heel, stage 4; L89.224 Pressure ulcer of left hip, stage 4; L89.214 Pressure ulcer of right hip, stage 4; R65.21 Severe sepsis with septic shock; G82.20 Paraplegia, unspecified; M86.68 Other chronic osteomyelitis, other site; E87.1 Hypo-osmolality and hyponatremia; D62 Acute posthemorrhagic anemia; Z68.1 Body mass index [BMI] 19.9 or less, adult; I95.9 Hypotension, unspecified; F17.210 Nicotine dependence, cigarettes, uncomplicated; K21.9 Gastro-esophageal reflux disease without esophagitis; E87.6 Hypokalemia; D47.3 Essential (hemorrhagic) thrombocythemia; Z79.1 Long term (current) use of non-steroidal anti-inflammatories (NSAID); Z79.899 Other long term (current) drug therapy
CPT/HCPCS: 10045; 10078; 10790; 27000; 50010; 50101; 50382; 50414; 50455; 50970; 51771; 53000; 53078; 56528; 57095; 57103; 62110; 62900; 65002; 65090; 70005

== ENCOUNTER → 2017-08-15 | Outpatient (CLI) | payer OTHER ==
[~2017-08-15] MED LIST changes: +DAKIN'S473 ML IRRIG; +MEROPENEM500 MG IV
== END ==
LOC: HYPER 05-30 14:50
DX: L89.224 Pressure ulcer of left hip, stage 4 (principal); L89.213 Pressure ulcer of right hip, stage 3; L89.313 Pressure ulcer of right buttock, stage 3; L89.623 Pressure ulcer of left heel, stage 3; L89.613 Pressure ulcer of right heel, stage 3; L89.150 Pressure ulcer of sacral region, unstageable; G82.21 Paraplegia, complete; F17.210 Nicotine dependence, cigarettes, uncomplicated

== ENCOUNTER → 2017-09-19 | Outpatient (CLI) | payer OTHER | LOC: HYPER 09-12 06:43 | DX: L89.224 Pressure ulcer of left hip, stage 4 (principal); L89.213 Pressure ulcer of right hip, stage 3; L89.613 Pressure ulcer of right heel, stage 3; L89.313 Pressure ulcer of right buttock, stage 3; L89.623 Pressure ulcer of left heel, stage 3; L89.520 Pressure ulcer of left ankle, unstageable; L84 Corns and callosities; G82.21 Paraplegia, complete; F17.200 Nicotine dependence, unspecified, uncomplicated ==

== ENCOUNTER → 2018-02-05 | Outpatient (CLI) | payer OTHER | LOC: HYPER 06:56 | DX: L89.623 Pressure ulcer of left heel, stage 3 (principal); L89.613 Pressure ulcer of right heel, stage 3; L89.314 Pressure ulcer of right buttock, stage 4; L89.214 Pressure ulcer of right hip, stage 4; L89.223 Pressure ulcer of left hip, stage 3; G82.21 Paraplegia, complete; F17.290 Nicotine dependence, other tobacco product, uncomplicated ==

== ENCOUNTER → 2018-05-20 | Outpatient (CLI) | payer OTHER | LOC: HYPER 04-02 07:04 | DX: L89.214 Pressure ulcer of right hip, stage 4 (principal); L89.224 Pressure ulcer of left hip, stage 4; L89.623 Pressure ulcer of left heel, stage 3; L89.613 Pressure ulcer of right heel, stage 3; L89.314 Pressure ulcer of right buttock, stage 4; L84 Corns and callosities; G82.21 Paraplegia, complete; F17.290 Nicotine dependence, other tobacco product, uncomplicated ==

== ENCOUNTER → 2018-08-19 | Outpatient (CLI) | payer OTHER | LOC: HYPER 06:43 | DX: L89.623 Pressure ulcer of left heel, stage 3 (principal); L89.613 Pressure ulcer of right heel, stage 3; L89.314 Pressure ulcer of right buttock, stage 4; L89.214 Pressure ulcer of right hip, stage 4; L89.223 Pressure ulcer of left hip, stage 3; G82.21 Paraplegia, complete; L89.522 Pressure ulcer of left ankle, stage 2; F17.290 Nicotine dependence, other tobacco product, uncomplicated ==

== ENCOUNTER → 2019-01-15 | Outpatient (CLI) | payer OTHER | LOC: HYPER 16:52 | DX: L89.314 Pressure ulcer of right buttock, stage 4 (principal); L89.214 Pressure ulcer of right hip, stage 4; G82.21 Paraplegia, complete; L84 Corns and callosities; G83.9 Paralytic syndrome, unspecified; F17.200 Nicotine dependence, unspecified, uncomplicated ==

== ENCOUNTER → 2019-04-21 | Outpatient (CLI) | payer OTHER | LOC: HYPER 11:22 | DX: L89.314 Pressure ulcer of right buttock, stage 4 (principal); L89.214 Pressure ulcer of right hip, stage 4; G82.21 Paraplegia, complete; F17.290 Nicotine dependence, other tobacco product, uncomplicated ==

== ENCOUNTER → 2019-08-27 | Outpatient (CLI) | payer OTHER | LOC: HYPER 10:54 | PROVIDERS: ATTEND Emergency Medicine Emergency Medical Services | DX: L89.314 Pressure ulcer of right buttock, stage 4 (principal); L89.214 Pressure ulcer of right hip, stage 4; L89.613 Pressure ulcer of right heel, stage 3; G82.21 Paraplegia, complete; F17.290 Nicotine dependence, other tobacco product, uncomplicated ==

== ENCOUNTER → 2020-01-01 | Outpatient (CLI) | payer OTHER | LOC: HYPER 09:34 | PROVIDERS: ATTEND Emergency Medicine | DX: L89.314 Pressure ulcer of right buttock, stage 4 (principal); L89.214 Pressure ulcer of right hip, stage 4; L89.613 Pressure ulcer of right heel, stage 3; G82.21 Paraplegia, complete; F17.290 Nicotine dependence, other tobacco product, uncomplicated ==

== ENCOUNTER → 2020-06-08 | Outpatient (CLI) | payer OTHER | LOC: HYPER 11:45 | PROVIDERS: ATTEND Emergency Medicine | DX: L89.314 Pressure ulcer of right buttock, stage 4 (principal); L89.214 Pressure ulcer of right hip, stage 4; L89.613 Pressure ulcer of right heel, stage 3; L89.229 Pressure ulcer of left hip, unspecified stage; G82.21 Paraplegia, complete; F17.290 Nicotine dependence, other tobacco product, uncomplicated; Z79.899 Other long term (current) drug therapy ==

== ENCOUNTER → 2020-10-21 | Outpatient (CLI) | payer OTHER | LOC: HYPER 08:43 | PROVIDERS: ATTEND Emergency Medicine | DX: L89.314 Pressure ulcer of right buttock, stage 4 (principal); L89.214 Pressure ulcer of right hip, stage 4; L89.613 Pressure ulcer of right heel, stage 3; L89.229 Pressure ulcer of left hip, unspecified stage; G82.21 Paraplegia, complete; F17.290 Nicotine dependence, other tobacco product, uncomplicated ==